=== PATIENT | male | born 2005 | race Caucasian/White ===

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

== ENCOUNTER 2024-03-02 19:11 | Emergency (ER) | payer BC, SELFPAY ==
--- NOTE | 2024-03-02 19:12 | ED.EYEPROB ---
HPI - Eye Problem General Chief complaint: Eye Problems Stated complaint: EYE REDNESS Time Seen by Provider: 03/02/24 19:11 Source: patient Mode of arrival: ambulatory Limitations: no limitations History of Present Illness HPI Narrative: Gorge is a 18-year-old male patient presenting to the clinic today with complaints of right eye irritation x1 day. He reports he had eye pain, blurry vision, photosensitivity, and watering of the eye yesterday. States his symptoms have slightly improved today but is still having some blurry vision and eye discomfort. No known injury. Does wear contacts. Related Data Allergies Allergy/AdvReac Type Severity Reaction Status Date / Time No Known Allergies Allergy Verified 03/02/24 19:20 Review of Systems Review of Systems: Pertinent positives per HPI. Patient denies any fever, chills, rash, headache, visual changes, dizziness, cough, runny nose, sore throat, shortness of breath, chest pain, palpitations, nausea, vomiting, diarrhea, constipation, abdominal pain, or any urinary issues. PMFSH Comments At the time of my signature, I reviewed and agree with the nursing past medical, surgical, social, and family history. There is no relevant family history pertinent to the patient complaint. Exam Narrative: General: Well-developed, well nourished, in no apparent distress Head: Normocephalic, atraumatic Eyes: Pupils equally round and reactive to light bilaterally, EOM intact, left sclera and conjunctive clear, no discharge, right sclera and conjunctiva injected, lids normal Ears: TMs intact and clear, ear canals clear, no drainage, grossly hearing normal. Nose: Nares patent, no discharge, no inflammation, no sinus tenderness. Mouth: Oropharynx without lesions or masses, good dentition, MMM. Neck: Supple, trachea midline, no enlargement of anterior or posterior cervical nodes, no thyroid masses or goiter palpable. Cardio: Regular rate and rhythm, s1 and s2 normal, no murmur appreciated. Resp: Clear to auscultation bilaterally anteriorly and posteriorly, no rhonchi, rales, wheezing or rubs Course Course Emergency Course: Portions of this record may have been created with voice recognition software. Level of Care: Express Care Visit Vital Signs Vital signs: Vital Signs Temperature 36.8 C 03/02/24 19:20 Pulse Rate 78 03/02/24 19:20 Respiratory Rate 18 03/02/24 19:20 Blood Pressure 132/67 03/02/24 19:20 Pulse Oximetry 100 03/02/24 19:20 Oxygen Delivery Room Air 03/02/24 19:20 Temperature 36.8 C 03/02/24 19:20 Pulse Rate 78 03/02/24 19:20 Respiratory Rate 18 03/02/24 19:20 Blood Pressure 132/67 03/02/24 19:20 Pulse Oximetry 100 03/02/24 19:20 Oxygen Delivery Room Air 03/02/24 19:20 Vital signs reviewed Procedures Other Procedure Procedure 1: Other Procedure: Two drops of topical tetracaine was instilled with good anesthesia.Fluorescein stain of the right eye was performed without uptake of dye. No epithelial defect was noted. NO FB, ulcer or dendritic lesions. Upper lid was everted and no FB or lesions were noted. NO Carli sign. Normal saline irrigation eye solution was performed and the patient tolerated the procedure well, no adverse reaction or complications. MDM - Eye Problem MDM Narrative Medical decision making narrative: At the time of visit patient is resting comfortably on the exam table. Patient appears to be nontoxic. Plan: I suspect patient has corneal irritation. No sign of obvious corneal abrasion. Ofloxacin eyedrops was sent to the pharmacy. Supportive measures were discussed with the patient and they voiced understanding discharge instructions and agrees to treatment plan. Return precautions reviewed Differential Diagnosis Differential diagnosis: Likely corneal abrasion, conjunctivitis, acute iritis, hyphema, periorbital cellulitis, subconjunctival hemorrhage, glaucoma, corneal ulcer and ruptured
[2024-03-02 19:20] VITALS: BP 132/67; PULSE 78; RESP 18; TEMP 36.8; O2SAT 100
[2024-03-02] MEDS: DACRIOSE EYE IRRIGATION 118 ML BOTTLE RIGHT EYE (19:30)
[2024-03-02] MEDS: FLUORESCEIN SOD 1 MG/STRIP RIGHT EYE (19:31)
[2024-03-02] MEDS: TETRACAINE HCL 0.5% OPHTH SOLN 4 ML BTL RIGHT EYE (19:31)
== END 2024-03-02 19:45 | disposition home or self-care (01) ==
PROVIDERS: Emergency Provider Nurse Practitioner Family; PCP Family Medicine
DX: H18.891 Other specified disorders of cornea, right eye (principal)
CPT/HCPCS: 99213; A9270; G0463